=== PATIENT | male | born 1990 | race Two or more races ===

== ENCOUNTER 2016-05-26 09:46 | Emergency (ER) | payer SELFPAY ==
[2016-05-26 10:30] LABS: ABSOLUTE NEUTROPHIL COUNT 2.8 K/mm3 (1.8-7.7); BASO % 0.6 % (0.2-1.0); EOS # 0.1 (0.0-0.5); EOS % 1.9 % (0.9-2.9); HEMATOCRIT 42.4 % (32.0-52.0); IMM NEUT% 0.2 % (0-1); LYMPH # 1.8 (1.0-4.8); LYMPH % 34.2 % (15-45); MEAN CELL VOLUME 93.4 fl (80.0-94.0); MEAN CORPUSCULAR HEMOGLOBIN 30.8 pg (27.0-31.0); MONO # 0.4 (0.0-0.8); MONO % 8.6 % (4-12); NEUT % 54.5 % (43-75); PLATELET COUNT 214 K/mm3 (130-400); RED CELL DISTRIBUTION WIDTH 12.4 % (11.5-14.5)
[2016-05-26 10:48] LABS: ALB/GLOB RATIO 1.6 (>1.0); ALBUMIN 4.4 gm/dL (3.5-5.7)
[2016-05-26 10:52] LABS: TROPONIN I < 0.01 ng/ml (0.0-0.06)
--- NOTE | 2016-05-26 10:58 | RAD ---
EXAMINATION:CHEST - 2 VIEWS CLINICAL INDICATION: Chest pain and shortness of breath. COMPARISON:none FINDINGS: The cardiomediastinal silhouette is within normal limits. There is no adenopathy identified. There is no pleural effusion. The lungs are clear. The osseous structures are unremarkable for age. No visible pneumothorax. IMPRESSION: Negative PA and lateral views of the chest. No acute cardiopulmonary process is identified.
[2016-05-26 11:00] LABS: THYROID STIMULATING HORMONE 1.27 uIU/ml (0.34-5.60)
== END 2016-05-26 11:27 | disposition home or self-care (01) ==
LOC: ED 09:46
DX: R07.9 Chest pain, unspecified (principal); R06.02 Shortness of breath